=== PATIENT | male | born 1970 | race Caucasian/White ===

== ENCOUNTER 2018-01-13 07:19 | Day surgery (SDC) | payer OTHER ==
[~2018-01-13] VITALS: Ht 188 cm; Wt 115.2 kg
[~2018-01-13 07:19] MED LIST: GINGER ROOT550 MG PO; LISI5 PO; SILD25T PO; TURMERIC538 MG PO
== END 2018-01-13 11:22 | disposition home or self-care (01) ==
LOC: ORSCMMR 07:19
PROVIDERS: Surgery
PROC: 0WUF0JZ Supplement Abdominal Wall with Synthetic Substitute, Open Approach (ICD-10-PCS; principal; 2018-01-13 08:45)
DX: K42.0 Umbilical hernia with obstruction, without gangrene (principal); I10 Essential (primary) hypertension; Z79.899 Other long term (current) drug therapy
CPT/HCPCS: C1781; J0330; J0690; J1100; J2250; J2405; J3010; J3490; J7120

== ENCOUNTER 2023-08-28 07:10 | Day surgery (SDC) | payer OTHER ==
[~2023-08-28] VITALS: Ht 188 cm; Wt 189.6 kg
[~2023-08-28 07:10] MED LIST changes: +AMLODIPINE BESYL5 MG PO; +B-1100 M1 PO; +CEPH500 PO; +CO Q10100 MG PO; +ELIQUIS5 M2 PO; +FENOFIBRATE145 MG PO; +FOLI1 PO; +METO25ER PO; +MULVITA PO; +ROSUVASTATIN CA40 MG PO; +TRIA15CR3 TOP; +ZESTRIL40 M1 PO
[2023-08-28] MEDS ORDERED: MELATONIN5 M1 PO (07:44)
[2023-08-28 07:52] VITALS: BP 151/103
--- NOTE | 2023-08-28 10:08 | NUR ---
08/28/23 Marina Bliss MONITOR INTACT WITH CONTINUOUS PULSE OXIMETRY, CONTINUOUS END TITAL CO2, AND INTERMITTENT BLOOD PRESSURE.
[2023-08-28 10:35] VITALS: BP 116/80
[2023-08-28 10:40] VITALS: BP 123/92
--- NOTE | 2023-08-28 10:55 | NUR ---
DISCHARGE PT [id number], VSS/RA, JAMES PO H20, DENIES PAIN/SOB/CP/PRESSURE, AMB/DRESSED SELF,N IV DC'D. DC INS PROVIDED. PT REP UNDERSTANDING THOSE INSTRUCTIONS. LEFT FLOOR VIA WC WITH DC VOL WITH ALL PERSONAL POSSESSIONS TO GO HOME WITH DIRECTOR OF STRATEGIC PARTNERSHIPS/DAD.
== END 2023-08-28 10:55 | disposition home or self-care (01) ==
LOC: ORSCMMR 07:10 → ORD 09:15 → ORSCMMR 09:45 → ORD 10-16 08:30
PROVIDERS: Specialist
PROC: 0DJD8ZZ Inspection of Lower Intestinal Tract, Via Natural or Artificial Opening Endoscopic (ICD-10-PCS; principal; 2023-08-28 09:45)
DX: Z12.11 Encounter for screening for malignant neoplasm of colon (principal); I48.91 Unspecified atrial fibrillation; I10 Essential (primary) hypertension; K64.8 Other hemorrhoids; K64.4 Residual hemorrhoidal skin tags; E78.5 Hyperlipidemia, unspecified; Z68.43 Body mass index [BMI] 50.0-59.9, adult; E66.01 Morbid (severe) obesity due to excess calories; Z79.01 Long term (current) use of anticoagulants; Z79.899 Other long term (current) drug therapy; G47.33 Obstructive sleep apnea (adult) (pediatric)
CPT/HCPCS: J2704; J7120

== ENCOUNTER 2025-09-04 19:45 | Emergency (ER) | payer OTHER | END 2025-09-04 22:35 | disposition home or self-care (01) | LOC: ER 19:45 | DX: R04.0 Epistaxis (principal); Z87.891 Personal history of nicotine dependence; Z79.899 Other long term (current) drug therapy ==